=== PATIENT | male | born 2005 | race Caucasian/White ===

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

== ENCOUNTER → 2023-02-28 07:48 | Outpatient (CLI) | payer BC, SELFPAY ==
[2023-02-28 08:52] LABS: Basophils # 0.1 K/mm3 (0-0.2); Basophils % 0.7 % (0.1-2.0); Eosinophils # 1.1 K/mm3 (0.0-0.4); Eosinophils % 13.4 % (0.1-12.0); Hematocrit 42.4 % (42.0-52.0); Hemoglobin 14.1 g/dL (14.1-18.0); Lymphocytes # 2.1 K/mm3 (0.7-4.5); Lymphocytes % 25.9 % (10-50); Mean Corpuscular HGB Conc 33.3 g/dL (31.8-35.4); Mean Corpuscular Hemoglobin 31.9 pg (27.0-31.2); Mean Corpuscular Volume 95.7 fl (80-94); Mean Platelet Volume 8.2 fl (7.4-10.4); Monocytes # 0.4 K/mm3 (0.1-1.0); Monocytes % 5.5 % (1.7-9.3); Neutrophils # 4.4 K/mm3 (1.8-7.8); Neutrophils % 54.5 % (37.0-80.0); Platelet Count 279 K/mm3 (142-424); Red Blood Count 4.43 M/mm3 (4.60-6.20); Red Cell Distribution Width 13.2 % (11.5-17.5)
[2023-03-02 07:55] LABS: Peripheral Smear Review Scanned Result
== END ==
LOC: LAB 07:52
PROVIDERS: PCP Internal Medicine Adolescent Medicine; Visit Provider Internal Medicine Adolescent Medicine
DX: D72.10 Eosinophilia, unspecified (principal)
CPT/HCPCS: 36415; 85025

== ENCOUNTER 2023-04-03 21:13 | Emergency (ER) | payer BC, SELFPAY ==
[2023-04-03 21:31] VITALS: BP 130/73; PULSE 62; RESP 18; TEMP 36.7; O2SAT 99; BMI 19.0
--- NOTE | 2023-04-03 21:41 | XR_ITS ---
PROCEDURE INFORMATION: Exam: XR Left Shoulder Exam date and time: 04/03/2023 9:54 PM Age: 18 years old Clinical indication: Pain; Shoulder; Left TECHNIQUE: Imaging protocol: Radiologic exam of the left shoulder. Views: 2 or more views. COMPARISON: CR XR CHEST 2V 04/03/2023 9:52 PM FINDINGS: Bones/joints: Normal. Soft tissues: Normal. IMPRESSION: No acute findings.
--- NOTE | 2023-04-03 21:41 | XR_ITS ---
PROCEDURE INFORMATION: Exam: XR Chest Exam date and time: 04/03/2023 9:52 PM Age: 18 years old Clinical indication: Other: Generalized chest pain TECHNIQUE: Imaging protocol: Radiologic exam of the chest. Views: 2 views. COMPARISON: CT ABDOMEN PELVIS W CON 10/25/2021 6:34 PM FINDINGS: Lungs: No consolidation. Pleural spaces: No pneumothorax. Heart/Mediastinum: No cardiomegaly. Bones/joints: No acute fracture. IMPRESSION: No acute findings.
--- NOTE | 2023-04-03 22:52 | HMH.EDGENADL ---
Discharge Plan Disposition Patient Disposition: Home, Self-Care Prescriptions Prescriptions: No Action No Known Home Medications Referrals Follow up/Referrals: Seven Hernandez MD [Primary Care Provider] - See instructions Activity Restrictions/Add. Instructions Additional Instructions/Restrictions: You pulled your left-sided upper back muscle because of the pulling and pushing that you do when you work at [employer]. Please increase your strength in your upper extremity so you do not pull your muscles. Take some ibuprofen or Tylenol for pain. Clinical Impressions Clinical Impression: Strain of thoracic spine Stand Alone Forms Stand Alone Forms: Work/School Release Discharge ED Provider: Bindu Perera General Adult HPI General Chief complaint: PAIN Stated complaint: back pain Time Seen by Provider: 04/03/23 21:50 Mode of Arrival: Ambulatory Source of Information: Patient Limitations: No Limitations Description of Symptoms (Recalled from ER Triage Doc. by RN): pt c/o L shoulder blade pain. pt states the pain is intermittant, worse with movement, sharp in nature and a 5/10. pt denies any injury. pt advises he will need a work note for [employer]. History of Present Illness HPI narrative: Patient is a 18-year male who is here secondary to an injury and pain to the left shoulder blade. Patient stated that he does do some heavy lifting at work. He works at the [employer]. A lot of pulling and pushing at least 30 pounds. He did feel a pop in his left shoulder shoulder blade but significant mount of sharp pain in that area. No numbness tingling down the arm no neck pain. Onset (ago): week(s) Location: left and upper extremity Radiation: back Severity: moderate Severity scale (1-10): 7 Quality: stabbing and sharp Consistency: intermittent Relieving factors: none Exacerbating factors: movement Associated symptoms: denies other symptoms Treatments prior to arrival: none Related Data Home Medications Medication Instructions Recorded Confirmed No Known Home Medications 04/03/23 04/03/23 Allergies Allergy/AdvReac Type Severity Reaction Status Date / Time No Known Allergies Allergy Verified 04/03/23 21:36 [facility] Disclaimer: The information contained in this section may have been updated after the patient was seen, as this information can be updated by other users. Social History Smoking Status: Never smoker alcohol intake: current substance use type: denies use current occupational status: employed Travel in the last 8 weeks: None household members: family housing: house ROS Obtained: Yes All systems reviewed & no additional complaints except as documented Musculoskeletal Musculoskeletal: Reports back pain and Reports other (Left arm pain) Physical Exam General General appearance: alert and in distress Head Head exam: atraumatic, normocephalic and normal inspection Eye Eye exam: Present normal appearance, PERRL and EOMI; Absent scleral icterus or conjunctival redness ENT ENT exam: Present normal exam, normal oropharynx and mucous membranes moist Neck Neck exam: Present normal inspection, full ROM and trachea midline Chest Chest inspection: Present normal inspection and symmetric chest wall rise Respiratory Respiratory exam: Present normal lung sounds bilaterally Cardiovascular Cardiovascular exam: Present regular rate, normal rhythm, normal heart sounds, +S1 and +S2 Abdominal Exam Abdominal exam: Present soft and normal bowel sounds; Absent distention, tenderness, guarding, rebound or rigidity Extremities Exam Extremities exam: Present normal inspection, full ROM, tenderness, normal capillary refill and other (Pain with movement of the left arm in the shoulder region and pain at the shoulder blade and left paraspinal tenderness); Absent edema, joint swelling, calf tenderness or clubbing Back Exam
[2023-04-03 23:09] VITALS: BP 121/76; PULSE 71; RESP 18; TEMP 36.6
== END 2023-04-03 23:15 | disposition home or self-care (01) ==
PROVIDERS: Emergency Provider Emergency Medicine; PCP Internal Medicine Adolescent Medicine
DX: S29.012A Strain of muscle and tendon of back wall of thorax, initial encounter (principal); X50.0XXA Overexertion from strenuous movement or load, initial encounter; X50.3XXA Overexertion from repetitive movements, initial encounter
CPT/HCPCS: 71046; 73030; 99283; 99284

== ENCOUNTER 2023-07-25 04:44 | Emergency (ER) | payer BC, SELFPAY ==
[2023-07-25 04:46] VITALS: BP 132/77; PULSE 74; RESP 16; TEMP 36.7; O2SAT 97; BMI 19.0
--- NOTE | 2023-07-25 05:00 | HMH.EDGENADL ---
Discharge Plan Disposition Patient Disposition: Home, Self-Care Prescriptions Prescriptions: No Action No Known Home Medications Referrals Follow up/Referrals: Seven Hernandez MD [Primary Care Provider] - See instructions Activity Restrictions/Add. Instructions Additional Instructions/Restrictions: Please follow-up with your primary care provider. Please return to the emergency department if you develop any new or worsening symptoms or become concerned for your health. Clinical Impressions Clinical Impression: Strain of abdominal muscle Qualifiers: Encounter type: initial encounter Qualified Code(s): S39.011A - Strain of muscle, fascia and tendon of abdomen, initial encounter Instructions Patient Instructions: DI for Acute Abdominal Pain Discharge ED Provider: Casey Robledo General Adult HPI General Chief complaint: Abdominal Pain Stated complaint: Right side pain with some nausea Time Seen by Provider: 07/25/23 04:45 History of Present Illness HPI narrative: 18-year-old male, previously healthy presents with 1 week of intermittent right lower quadrant pain/pressure. reports history of prior appendectomy. Denies any burning with urination but does report that he sometimes feels like he has to pee but cannot. Denies any neurologic symptoms. Denies any recent trauma. Denies any fever, denies any constipation, denies nausea vomiting diarrhea. Pain is positional, worse with movement. Denies concern for STD. Denies any testicular pain. Related Data Home Medications Medication Instructions Recorded Confirmed No Known Home Medications 04/03/23 04/03/23 Allergies Allergy/AdvReac Type Severity Reaction Status Date / Time No Known Allergies Allergy Verified 04/03/23 21:36 [facility] Disclaimer: The information contained in this section may have been updated after the patient was seen, as this information can be updated by other users. Social History Smoking Status: Never smoker alcohol intake: current substance use type: denies use current occupational status: employed Travel in the last 8 weeks: None household members: family housing: house ROS Obtained: Yes All systems reviewed & no additional complaints except as documented Physical Exam General General appearance: alert and in no apparent distress Head Head exam: atraumatic and normocephalic Eye Eye exam: Present normal appearance, PERRL and EOMI ENT ENT exam: Present normal oropharynx and normal external ear exam Neck Neck exam: Present normal inspection and full ROM Chest Chest inspection: Present normal inspection and symmetric chest wall rise; Absent tenderness Respiratory Respiratory exam: Present normal lung sounds bilaterally; Absent respiratory distress Cardiovascular Cardiovascular exam: Present regular rate and normal rhythm Abdominal Exam Abdominal exam: Present soft; Absent distention, tenderness or guarding exam: Present other (No evidence of hernia); Absent testicular tenderness or scrotal swelling Extremities Exam Extremities exam: Present normal inspection; Absent edema or joint swelling Back Exam Back exam: Present normal inspection; Absent tenderness Neurological Exam Neurological exam: Present alert and oriented X3; Absent motor sensory deficit Psychiatric Psychiatric exam: Present normal affect and normal mood Skin Skin exam: Present warm, dry and normal color Lymphatic Lymphatic Findings: no adenopathy Medical Decision Making Medical Records Medical records reviewed: Yes I reviewed the patient's medical records. Luis Daniel Inquiry Pt receiving controlled substance: No Luis Daniel was queried for this patient: No Vital Signs: 07/25/23 04:46 Temperature 98.1 F Temperature Source Oral Pulse Rate [Left Radial] 74 Respiratory Rate 16 Blood Pressure [Right Arm] 132/77 Blood Pressure Mean [Right Arm] 95 Blood Pressure Source [Right Arm] Automatic Cuff 02 Sat by Pulse Oximetry 97 Oxygen Delivery Method Room Air Lab Data Lab results reviewed: Yes I reviewed the patient's lab results. Lab Results 07/25/23 05:32: Urine Color Yellow, Urine Appearance Clear, Urine pH 7.5, Ur Specific Guy 1.020, Urine Protein Negative, Urine Glucose (UA) Negative, Urine Ketones Trace, Urine Blood Negative, Urine Nitrate Negative, Urine Bilirubin Negative, Urine Urobilinogen 1.0, Ur Leukocyte Esterase Negative, Urine RBC None, Urine WBC Occasional, Ur Squamous Epith Cells Occasional, Urine Bacteria None Orders (Tests/Meds): ORDERS Category Date Time Status UA [Urinalysis and Microscopic] Stat Lab 07/25/23 05:32 Completed Medical Decision Narrative: 18-year-old male previously healthy with history of prior appendectomy presents with intermittent positional right lower quadrant pain and urinary urgency. History was obtained via conversation with patient. On arrival, patient is [afebrile, hemodynamically stable] [alert, oriented x4, appropriate, GCS 15], moving all extremities spontaneously, pupils equal and reactive to light. Full physical exam performed and significant for no evidence of any, no significant right lower quadrant tenderness on exam. Differential includes but is not limited to UTI, renal lithiasis, torsion, hernia, stump appendicitis, constipation, abdominal muscle strain Workup initiated including UA. On re-evaluation, patient [remains afebrile, HD stable.] Laboratory workup independently interpreted by me and significant for clean urine without RBCs or WBCs. Given positional pain, worse with movement, most likely etiology is musculoskeletal strain. Blood work and CT imaging was considered, but deemed unnecessary due to low concern for any other emergent pathology given duration of symptoms, history of prior appendicitis, benign exam. Patient discharged in stable condition with return precautions. Procedures Risk/Benefits of Procedure(s) Were Explained: Yes Critical Care Critical Care Time Critical Care Time: No
--- NOTE | 2023-07-25 05:06 | PC.NURSE ---
Patient attempted and was unable to provide urine sample at this time. Asked patient to try again as soon as he feels able and to call out and let us know when a sample has been provided. Call light within reach, bed in low locked position. No acute distress noted, no needs expressed at this time.
[2023-07-25 05:36] LABS: Microscopic, Urine URINE MICROSCOPIC (MICROSCOPIC)
[2023-07-25 05:39] LABS: Appearance,Urine CLEAR (Clear); Bilirubin,Urine Negative (Negative); Blood, Urine Negative (Negative); Color,Urine YELLOW (Yellow); Glucose,Urine (UA) Negative (Negative); Ketones,Urine TRACE (Negative); Leukocyte Esterase,Urine Negative (Negative); Nitrate,Urine Negative (Negative); PH,Urine 7.5 (5.0-8.5); Protein,Urine Negative (Negative)
[2023-07-25 05:51] LABS: Squamous Epithelial Cell,Urine Occasional #/hpf (0-5); WBC,Urine Occasional #/hpf (0-3)
[2023-07-25 06:00] VITALS: BP 132/77; PULSE 74; RESP 16; TEMP 36.7; O2SAT 97
== END 2023-07-25 06:01 | disposition home or self-care (01) ==
PROVIDERS: Emergency Provider Emergency Medicine; PCP Internal Medicine Adolescent Medicine
DX: S39.011A Strain of muscle, fascia and tendon of abdomen, initial encounter (principal); R11.0 Nausea; X58.XXXA Exposure to other specified factors, initial encounter
CPT/HCPCS: 81001; 99283

== ENCOUNTER → 2023-08-21 08:50 | Outpatient (CLI) | payer BC, SELFPAY ==
--- NOTE | 2023-08-21 09:00 | US_ITS ---
FINAL REPORT TECHNIQUE: Sonographic images of the right upper quadrant were obtained. CLINICAL HISTORY: RUQ PAIN FINDINGS: PANCREAS: Unremarkable. LIVER: Homogeneous. No focal hepatic lesion. No intrahepatic biliary ductal dilatation. GALLBLADDER: No gallstones. No gallbladder wall thickening or pericholecystic fluid. COMMON DUCT: 2 mm. Normal for age. RIGHT KIDNEY: The right kidney measures 11.3 cm. There is no hydronephrosis, mass, or stone. FREE FLUID: None. IMPRESSION: Unremarkable ultrasound of the right upper quadrant. Reviewed, Interpreted and Dictated by Liberty Rodriguez MD Transcribed by Alondra Downey Authenticated and . [facility]
== END ==
PROVIDERS: PCP Internal Medicine Adolescent Medicine; Visit Provider Nurse Practitioner Family
DX: R10.811 Right upper quadrant abdominal tenderness (principal)
CPT/HCPCS: 76705

== ENCOUNTER 2024-08-16 14:33 | Emergency (ER) | payer BC, SELFPAY ==
[2024-08-16 14:43] VITALS: BP 128/76; PULSE 104; RESP 18; TEMP 36.8; O2SAT 98; BMI 18.6
--- NOTE | 2024-08-16 14:53 | ED_ITS ---
Discharge Plan Disposition Patient Disposition: Home, Self-Care Condition: Good Prescriptions Prescriptions: New amoxicillin 875 mg tablet 875 mg PO Q12H Qty: 20 0RF [id number] [Bromfed DM] 2-30-10 mg/5 mL Syrup 5 ml PO Q6H PRN (Reason: Cough) Qty: 240 0RF Referrals Follow up/Referrals: Seven Hernandez MD [Primary Care Provider] - See instructions Activity Restrictions/Add. Instructions Additional Instructions/Restrictions: Drink plenty of fluids. Take tylenol or ibuprofen for pain or fever. Take the medications as directed. Follow up with your regular doctor. GO TO THE ER FOR ANY WORSENING SYMPTOMS Clinical Impressions Clinical Impression: Otitis media Qualifiers: Otitis media type: suppurative Chronicity: acute Laterality: bilateral Recurrence: non-recurrent Spontaneous tympanic membrane rupture: without spontaneous rupture Qualified Code(s): H66.003 - Acute suppurative otitis media without spontaneous rupture of ear drum, bilateral Pharyngitis Qualifiers: Pharyngitis/tonsillitis etiology: unspecified etiology Qualified Code(s): J02.9 - Acute pharyngitis, unspecified Stand Alone Forms Stand Alone Forms: Work/School Release Instructions Patient Instructions: Sore Throat, DI for Pharyngitis/Tonsillopharyngitis -- Adult Print Language Print Language: Kinyarwanda Discharge ED Provider: Neymar Paige [facility] General Stated complaint: sore throat, pain in both ears, headache, cough Mode of Arrival: Ambulatory Source of Information: Patient Time Seen by Provider: 08/16/24 14:46 Description of Symptoms (Recalled from Triage Doc. by RN): SORE THROAT, ALANIS, CONGESTION, COUGHING UP BROWNISH DRAINAGE HEENT Symptoms (Recalled from RN notes): Yes Resp Symptoms (Recalled from RN notes): Yes Skin Symptoms (Recalled from RN notes): No MS Symptoms (Recalled from RN notes): No Functional Status (Recalled from RN notes): WNL Related Data Previous Rx's ?Medication ?Instructions ?Recorded amoxicillin 875 mg tablet 875 mg PO Q12H #20 tabs 08/16/24 isogeyvwsukwifa-lyukaktdkxgsgly-UL 5 ml PO Q6H PRN Cough #240 mL 08/16/24 2 mg-30 mg-10 mg/5 mL oral syrup (Bromfed DM) Allergies Allergy/AdvReac Type Severity Reaction Status Date / Time No Known Allergies Allergy Verified 04/03/23 21:36 Worker's Comp Is this a Worker's Comp case?: No [facility] Disclaimer: The information contained in this section may have been updated after the patient was seen, as this information can be updated by other users. Social History Smoking Status: Never smoker alcohol intake: current substance use type: denies use current occupational status: employed Travel in the last 8 weeks: None household members: family housing: house ROS Obtained: Yes All systems reviewed & no additional complaints except as documented Constitutional Constitutional: Denies chills, Reports fever(s) and Reports poor appetite Eyes Eyes: Denies eye discharge ENT Ears, Nose, Mouth, and Throat: Denies ear discharge, Reports otalgia, Denies hearing loss, Denies sinus pain and Reports sore throat Cardiovascular Cardiovascular: Denies chest pain and Denies dyspnea Respiratory Respiratory: Denies chest congestion, Reports cough and Denies dyspnea Gastrointestinal Gastrointestingal: Denies abdominal pain, diarrhea, nausea or vomiting Musculoskeletal Musculoskeletal: Denies arthralgias Integumentary/Breasts Skin/Breast: Denies rash Physical Exam General General appearance: alert and in no apparent distress Head Head exam: atraumatic, normocephalic and normal inspection Eye Eye exam: Present normal appearance; Absent PERRL or EOMI ENT ENT exam: Present mucous membranes moist and normal external ear exam Expanded ENT Exam TM/Canal exam: Bilateral TM: erythema, bulging and effusion Nose exam: Absent sinus tenderness Nasal speculum exam: Bilateral: normal Mouth exam: Present normal external inspection and other; Absent drooling Teeth exam: Present normal inspection Throat exam: Present tonsillar erythema and tonsillomegaly Neck Neck exam: Present normal inspection, full ROM and trachea midline; Absent tenderness, meningismus or lymphadenopathy Chest Chest inspection: Present normal inspection and symmetric chest wall rise; Absent tenderness Respiratory Respiratory exam: Present normal lung sounds bilaterally; Absent respiratory distress, wheezes or stridor Cardiovascular Cardiovascular exam: Present regular rate, normal rhythm and normal heart sounds; Absent tachycardia or irregular rhythm Abdominal Exam Abdominal exam: Present soft and normal bowel sounds; Absent distention, tenderness, guarding, rebound or rigidity Extremities Exam Extremities exam: Present normal inspection and normal capillary refill; Absent tenderness, joint swelling or calf tenderness Back Exam Back exam: Present normal inspection and full ROM; Absent tenderness, CVA tenderness (R) or CVA tenderness (L) Neurological Exam Neurological exam: Present alert, oriented X3, CN II-XII intact, normal gait and reflexes normal; Absent motor sensory deficit Psychiatric Psychiatric exam: Present normal affect and normal mood Skin Skin exam: Present warm, dry, intact and normal color Lymphatic Lymphatic Findings: no adenopathy Medical Decision Making Medical Records Medical records reviewed: No I reviewed the patient's medical records. Screening: Per USPSTF and CDC recommendations, given the prevalence of disease in our region, it is our hospital?s policy to screen for HIV and viral Hepatitis for all patients aged 18 and over and those with ongoing risk factors. Luis Daniel Inquiry Pt receiving controlled substance: No Vital Signs: 08/16/24 14:43 Temperature 98.2 F Temperature Source Oral Pulse Rate [Left Radial] 104 H Respiratory Rate 18 Blood Pressure [Left Arm] 128/76 Blood Pressure Mean [Left Arm] 93 02 Sat by Pulse Oximetry 98 Lab Data Lab results reviewed: Yes I reviewed the patient's lab results.
[2024-08-16 15:30] VITALS: BP 128/76; PULSE 104; RESP 18; TEMP 36.8
== END 2024-08-16 15:34 | disposition home or self-care (01) ==
PROVIDERS: Emergency Provider Nurse Practitioner Family; PCP Internal Medicine Adolescent Medicine
DX: H66.003 Acute suppurative otitis media without spontaneous rupture of ear drum, bilateral (principal)
CPT/HCPCS: 87635; 99213; G0381

== ENCOUNTER 2025-03-24 02:30 | Emergency (ER) | payer BC, SELFPAY ==
--- OUTSIDE RECORDS SUMMARY | 2025-03-24 02:37 | XMS_ITS | Clinical Summary ---
Author Organization [facility] Address [address] [place] [id number] Phone [email or web address] Care Team Providers Care Sorter Lumber Straightener Name Role Phone Provider, No Primary Care Provider Unavailabl e Allergies No known active allergies Medications No known medications Active Problems No known active problems Social History Tobacco Use Types Packs/Day Years Used Date Smoking Tobacco: Never Smokeless Tobacco: Never Tobacco Cessation:Counseling Given: Not Answered Depression Answer Date Recorded PHQ Total Score Not on file 07/26/2024 Stress Answer Date Recorded Stress in your Life Not on file 08/19/2024 Dealing with Stress 3 08/19/2024 Sex and Gender Information Value Date Recorded Sex Assigned at Not on file 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 Gender Identity Not on file Sexual Orientation Not on file Last Filed Vital Signs Vital Sign Reading Time Taken Comments Blood Pressure 124/72 07/23/2023 7:36 PM EDT Pulse 84 07/23/2023 7:36 PM EDT Temperature 36.6 C (97.9 F) 07/23/2023 7:36 PM EDT Respiratory Rate 15 07/23/2023 7:36 PM EDT Oxygen Saturation 100% 07/23/2023 7:36 PM EDT Inhaled Oxygen Concentration - - Weight 59.9 kg (132 lb) 08/28/2022 10:53 AM EST Height 179.1 cm (5' 10.5 ) 08/28/2022 10:[address] Body Mass Index 18.67 08/28/2022 10:53 AM EST Plan of Treatment Health Maintenance Due Date Last Done Comments Dental Cleaning/Exam 2003 HIV Screening 2003 Hepatitis C Screening 2003 HPV Immunization (1 - Male 3-dose series) 2018 Men B Immunization (1 of 2 - Standard) 2019 Hep B Infection Screening - Triple Screen 2021 Annual Preventive Exam 08/28/2023 08/28/2022 Tetanus Diphtheria and Pertussis Immunization (7 - Td or Tdap) 05/10/2024 05/10/2014, 06/06/2007, 06/02/2004, Additional history exists Covid-19 Immunization ( - season) 2024 Influenza Immunization (Season Ended) 2025 07/30/2018, 10/09/2017 Pneumococcal: Ped (0 to 5 Yrs) and At-Risk Member (6 to 64 Yrs) Aged Out 2003, 2003, 2003 No longer eligible based on patient's age to complete this topic HIB Immunization Completed 03/02/2004, , 2003 Hepatitis B Immunization Completed 004, 2003, 2003 Polio Immunization Completed 06/06/2007, 0 03/02/2004, 2003, Additional history exists Varicella Immunization Completed 05/10/2014, 2003 Hepatitis A Immunization Completed 10/08/2018, 03/14 Meningococcal Immunization Completed 07/20/2019, Care Teams Sorter Lumber Straightener Relationship Specialty Start Date End Date Provider, [facility] Ley [id number] PCP - General Childcare Worker 08/29/22
[2025-03-24 03:05] VITALS: BP 139/52; PULSE 104; RESP 16; TEMP 37; O2SAT 99; BMI 19.6
--- NOTE | 2025-03-24 03:05 | HMH.EDGENADL ---
Discharge Plan Disposition Patient Disposition: Home, Self-Care Prescriptions Prescriptions: New ondansetron HCl 4 mg tablet 4 mg PO Q8H PRN (Reason: nausea and vomiting) 5 Days Qty: 30 0RF No Action amoxicillin 875 mg tablet 875 mg PO Q12H Qty: 20 0RF juowlinauosojqr-fxotzelsv-GV [Bromfed DM] 2-30-10 mg/5 mL Syrup 5 ml PO Q6H PRN (Reason: Cough) Qty: 240 0RF Referrals Follow up/Referrals: Provider,Referral, MD [Primary Care Provider, Medical] - See instructions Activity Restrictions/Add. Instructions Additional Instructions/Restrictions: Please take Zofran as needed for nausea and vomiting. If you develop continuous right upper quadrant pain or if your symptoms continue to worsen, recommend reassessment. Clinical Impressions Clinical Impression: Nausea & vomiting Instructions Patient Instructions: DI for Acute Abdominal Pain Print Language Print Language: Ugandan Discharge ED Provider: Casey Robledo General Adult HPI General Chief complaint: Abdominal Pain Stated complaint: nausea, vomiting Time Seen by Provider: 03/24/25 02:59 History of Present Illness HPI narrative: 20-year-old male without significant past medical history presents for nausea and vomiting. It has been ongoing all day. He reports he has been having some generalized crampy abdominal pain associated with vomiting. Denies any blood in the vomit. Has not really eaten anything today due to the symptoms. Denies any fever at home. No known ingestion of bad food or anything else. Nobody else has been sick around. Related Data Previous Rx's ?Medication ?Instructions ?Recorded amoxicillin 875 mg tablet 875 mg PO Q12H #20 tabs 08/16/24 vjdahrnxrujeesc-kjnfeoyettxgngf-WD 5 ml PO Q6H PRN Cough #240 mL 08/16/24 2 mg-30 mg-10 mg/5 mL oral syrup (Bromfed DM) ondansetron HCl 4 mg tablet 4 mg PO Q8H PRN nausea and 03/24/25 vomiting 5 days #30 tabs Allergies Allergy/AdvReac Type Severity Reaction Status Date / Time No Known Allergies Allergy Verified 04/03/23 21:36 [facility] Disclaimer: The information contained in this section may have been updated after the patient was seen, as this information can be updated by other users. Social History Smoking Status: Never smoker alcohol intake: current substance use type: denies use current occupational status: employed Travel in the last 8 weeks?: None household members: family housing: house Have you lived/traveled outside [place] in past 30 days?: No Contact w/someone who lives/traveled outside [place] past 30 days?: No Exposure to someone with infectious disease in past 14 days?: No Do you have a fever (greater than 100.4 F or 38 C)?: No Have you tested positive for COVID-19?: No Exposed to someone with COVID-19 in past 14 days?: No Do you have a sore throat?: No Do you have a cough?: No Do you have any weakness?: No Do you have any diarrhea?: No Are you experiencing any unusual bleeding?: No Do you have any muscle aches/pain?: No Do you have any abdominal pain?: No Are you experiencing loss of taste or smell?: No Other Medical History Have you received the Flu Vaccine for this season: No Have you received the Pneumonia Vaccine: No ROS Obtained: Yes All systems reviewed & no additional complaints except as documented Physical Exam General General appearance: alert and in no apparent distress Head Head exam: atraumatic and normocephalic Eye Eye exam: Present normal appearance, PERRL and EOMI ENT ENT exam: Present normal oropharynx and normal external ear exam Neck Neck exam: Present normal inspection and full ROM Chest Chest inspection: Present normal inspection and symmetric chest wall rise; Absent tenderness Respiratory Respiratory exam: Present normal lung sounds bilaterally; Absent respiratory distress Cardiovascular Cardiovascular exam: Present regular rate and normal rhythm Abdominal Exam Abdominal exam: Present soft; Absent distention, tenderness or guarding Extremities Exam Extremities exam: Present normal inspection; Absent edema or joint swelling Back Exam Back exam: Present normal inspection; Absent tenderness Neurological Exam Neurological exam: Present alert and oriented X3; Absent motor sensory deficit Psychiatric Psychiatric exam: Present normal affect and normal mood Skin Skin exam: Present warm, dry and normal color Lymphatic Lymphatic Findings: no adenopathy Medical Decision Making Medical Records Medical records reviewed: Yes I reviewed the patient's medical records. Screening: Per USPSTF and CDC recommendations, given the prevalence of disease in our region, it is our hospital?s policy to screen for HIV and viral Hepatitis for all patients aged 18 and over and those with ongoing risk factors. Luis Daniel Inquiry Pt receiving controlled substance: No Luis Daniel was queried for this patient: No Vital Signs: 03/24/25 03:05 Temperature 98.6 F Temperature Source Oral Pulse Rate [Right Radial] 104 H Respiratory Rate 16 Blood Pressure [Right Arm] 139/52 L Blood Pressure Mean [Right Arm] 81 Blood Pressure Position [Right Arm] Supine 02 Sat by Pulse Oximetry 99 Oxygen Delivery Method Room Air Lab Data Lab results reviewed: Yes I reviewed the patient's lab results. Orders (Tests/Meds): ED MEDICATIONS Discontinued Medications Generic Name Dose Route Start Last Admin Trade Name Freq PRN Reason Stop Dose Admin Ondansetron HCl 4 mg 03/24/25 03:05 03/24/25 03:11 Ondansetron 4mg Odt SL 03/24/25 03:06 4 mg ONCE ONE Administration Medical Decision Narrative: 20-year-old male without significant past medical history presents with 1 day of nausea vomiting and crampy abdominal pain.. History was obtained via interactive discussion with patient. On arrival, patient is [afebrile, hemodynamically stable, satting appropriately, alert, oriented x4, GCS 15], moving all extremities spontaneously. Full physical exam performed and significant for benign abdominal exam, moist mucous membranes Differential includes but is not limited to viral/bacterial gastroenteritis, cholecystitis, pancreatitis, dehydration. Patient was given p.o. Zofran for symptomatic management and correction of underlying abnormalities. Blood work and CT imaging was considered, but deemed unnecessary due to benign abdominal exam, no history to suggest pancreatitis. Given patient history, exam and workup, patient's presentation most likely represents gastroenteritis. Patient reported symptomatic treatment after p.o. Zofran and was discharged with prescription for Zofran. Return precautions given. Procedures Risk/Benefits of Procedure(s) Were Explained: Yes Critical Care Critical Care Time Critical Care Time: No
[2025-03-24] MEDS: ONDANSETRON 4MG ODT 4 MG SL (03:11)
[2025-03-24 03:50] VITALS: BP 138/78; PULSE 99; RESP 18; TEMP 36.6; O2SAT 99
== END 2025-03-24 03:53 | disposition home or self-care (01) ==
PROVIDERS: Emergency Provider Emergency Medicine
DX: R11.2 Nausea with vomiting, unspecified (principal)
CPT/HCPCS: 99283; Q0162